=== PATIENT | female | born 1985 | race Caucasian/White ===

== ENCOUNTER 2022-11-18 05:30 | Inpatient (IN) | payer MEDICAID ==
[~2022-11-18 05:30] MED LIST: Dextrose 5%-Lactated Ringers 1,000 ML IV SCH
[2022-11-18] MEDS ORDERED: Dextrose 5%-Lactated Ringers 1,000 ML IV SCH (06:00)
[2022-11-18] MEDS ORDERED: Scopolamine 1.5 MG Transdermal Patch TOP SCH (06:00)
[2022-11-18] MEDS ORDERED: cefOXitin 2 GM in Sodium Chloride 0.9% 50 ML IV ONE (06:30)
[2022-11-18] MEDS ORDERED: Celecoxib 200 MG Cap PO ONE (06:30)
[2022-11-18 06:33] LABS: ESTIMATED GFR 54 mL/min (>60)
[2022-11-18] MEDS ORDERED: cefOXitin 2 GM Vial ONE (06:41)
[2022-11-18] MEDS ORDERED: Neostigmine Methylsulfate 1 MG/ML 5 ML Syringe ONE (06:57)
[2022-11-18] MEDS ORDERED: Succinylcholine 200 MG/10 ML MDV ONE (06:57)
[2022-11-18] MEDS ORDERED: Ondansetron 4 MG/2 ML SDV ONE (06:57)
[2022-11-18] MEDS ORDERED: Dexamethasone 4 MG/ML SDV ONE (06:57)
[2022-11-18] MEDS ORDERED: Glycopyrrolate 0.2 MG/ML 5 ML MDV ONE (06:57)
[2022-11-18] MEDS ORDERED: Rocuronium 50 MG/5 ML Vial ONE (06:57)
[2022-11-18] MEDS ORDERED: Propofol 200 MG/20 ML SDV ONE (06:57)
[2022-11-18] MEDS ORDERED: fentaNYL 250 MCG/5 ML SDV ONE ×2 (06:58→08:19)
[2022-11-18] MEDS ORDERED: Ketamine 19 MG in Sodium Chloride 0.9% 19.81 ML IV SCH (07:30)
[2022-11-18] MEDS ORDERED: Ketamine 500 MG/5 ML MDV IV SCH (07:30)
[2022-11-18] MEDS ORDERED: Ketoconazole 2% Crm 30 GM Tube ONE (08:09)
[2022-11-18 08:43] LABS: HEMOGLOBIN A1C 5.4 % (4.5-6.2)
[2022-11-18] MEDS ORDERED: Metoclopramide 10 MG/2 ML SDV IVPUSH PRN (11:00)
[2022-11-18] MEDS ORDERED: HYDROmorphone 0.5 MG/0.5 ML Syringe IVPUSH PRN (11:00)
[2022-11-18] MEDS ORDERED: Cyclobenzaprine 10 MG Tab PO PRN (11:00)
[2022-11-18] MEDS ORDERED: HYDROmorphone 1 MG/ML Syringe IV PRN (11:00)
[2022-11-18] MEDS ORDERED: Acetaminophen 500 MG Tab PO PRN (11:00)
[2022-11-18] MEDS ORDERED: hydrOXYzine HCl 50 MG/ML SDV IM PRN (11:00)
[2022-11-18] MEDS ORDERED: traMADol 50 MG Tab PO PRN (11:00)
[2022-11-18] MEDS ORDERED: diphenhydrAMINE 50 MG/ML SDV IVPUSH PRN (11:00)
[2022-11-18] MEDS ORDERED: Ondansetron 4 MG/2 ML SDV IVPUSH PRN (11:00)
[2022-11-18] MEDS ORDERED: Labetalol 20 MG/4 ML Syringe IVPUSH PRN (11:00)
[2022-11-18] MEDS: Pantoprazole 40 MG Vial IVPUSH SCH (12:01)
[2022-11-18] MEDS: SCOPOLAMINE PATCH CHECK TOP SCH (12:09)
[2022-11-18] MEDS: Dextrose 5%-Lactated Ringers 1,000 ML IV SCH (13:39)
[2022-11-18] MEDS: Levothyroxine 100 MCG Vial IVPUSH SCH (13:41)
[2022-11-18] MEDS: Acetaminophen 500 MG Tab PO SCH ×2 (13:42→22:15)
[2022-11-18] MEDS: cefOXitin 2 GM in Sodium Chloride 0.9% 50 ML IV SCH ×2 (13:43→19:28)
[2022-11-18] MEDS ORDERED: MVI, Adult with Vitamin K 10 ML, Thiamine 200 MG, Zinc/Copper/Manganese/Selenium 1 ML i... IV SCH ×4 (16:00)
[2022-11-18] MEDS: oxyCODONE 5 MG Tab PO PRN (17:22)
[2022-11-18] MEDS: Heparin Sodium 5,000 Units/ML Vial SUBCUT SCH (17:23)
[2022-11-19] MEDS ORDERED: Iopamidol 612 MG/ML 30 ML SDV PO ONE (02:47)
[2022-11-19] MEDS: cefOXitin 2 GM in Sodium Chloride 0.9% 50 ML IV SCH ×4 (02:56→20:37)
[2022-11-19] MEDS: Dextrose 5%-Lactated Ringers 1,000 ML IV SCH (02:58)
[2022-11-19] MEDS: oxyCODONE 5 MG Tab PO PRN (03:02)
[2022-11-19] MEDS: Heparin Sodium 5,000 Units/ML Vial SUBCUT SCH ×2 (05:57→20:38)
[2022-11-19] MEDS: Acetaminophen 500 MG Tab PO SCH ×3 (05:57→21:54)
[2022-11-19] MEDS: SCOPOLAMINE PATCH CHECK TOP SCH (08:09)
[2022-11-19] MEDS: Celecoxib 200 MG Cap PO SCH ×2 (08:09→20:37)
[2022-11-19] MEDS: Cetirizine 10 MG Tab PO SCH (08:09)
[2022-11-19] MEDS: Levothyroxine 100 MCG Vial IVPUSH SCH (08:17)
[2022-11-19] MEDS ORDERED: Dextrose 5%-Lactated Ringers 1,000 ML IV SCH (09:30)
[2022-11-19] MEDS: Pantoprazole 40 MG Vial IVPUSH SCH (12:33)
[2022-11-19] MEDS ORDERED: MVI, Adult with Vitamin K 10 ML, Thiamine 200 MG, Zinc/Copper/Manganese/Selenium 1 ML i... IV SCH ×4 (16:00)
[2022-11-20] MEDS: Acetaminophen 500 MG Tab PO SCH (06:00)
[2022-11-20] MEDS: Heparin Sodium 5,000 Units/ML Vial SUBCUT SCH (06:01)
[2022-11-20] MEDS ORDERED: Pantoprazole 40 MG Delayed-Release Granules 1 Packet PO SCH (07:30)
[2022-11-20] MEDS ORDERED: Magnesium Hydroxide 400 MG/5 ML Susp 30 ML Cup PO PRN (08:41)
[2022-11-20] MEDS ORDERED: Levothyroxine 100 MCG Vial IVPUSH SCH (09:00)
[2022-11-20] MEDS ORDERED: Cyanocobalamin (Vitamin B12) 1,000 MCG/ML SDV IM ONE (09:00)
[2022-11-20] MEDS: Celecoxib 200 MG Cap PO SCH (09:05)
[2022-11-20] MEDS: SCOPOLAMINE PATCH CHECK TOP SCH (09:06)
[2022-11-20] MEDS: Cetirizine 10 MG Tab PO SCH (09:06)
== END 2022-11-20 11:22 | disposition home or self-care (01) | DRG 621 ==
LOC: JP.SDS 05:30 → JP.2SS 10:15
PROVIDERS: ADMIT Surgery; ATTEND Surgery
PROC: 0D164ZA Bypass Stomach to Jejunum, Percutaneous Endoscopic Approach (ICD-10-PCS; principal; 2022-11-18)
PROC: 0FB24ZX Excision of Left Lobe Liver, Percutaneous Endoscopic Approach, Diagnostic (ICD-10-PCS; 2022-11-18)
PROC: 0BQT4ZZ Repair Diaphragm, Percutaneous Endoscopic Approach (ICD-10-PCS; 2022-11-18)
PROC: 0DB64ZZ Excision of Stomach, Percutaneous Endoscopic Approach (ICD-10-PCS; 2022-11-18)
DX: E66.01 Morbid (severe) obesity due to excess calories (principal); E03.9 Hypothyroidism, unspecified; G89.29 Other chronic pain; I10 Essential (primary) hypertension; K44.9 Diaphragmatic hernia without obstruction or gangrene; F32.9 Major depressive disorder, single episode, unspecified; D64.9 Anemia, unspecified; M54.50 Low back pain, unspecified; R16.0 Hepatomegaly, not elsewhere classified; F98.8 Other specified behavioral and emotional disorders with onset usually occurring in childhood and adolescence; Z20.822 Contact with and (suspected) exposure to COVID-19; G47.33 Obstructive sleep apnea (adult) (pediatric); Z98.51 Tubal ligation status; Z88.8 Allergy status to other drugs, medicaments and biological substances; Z87.891 Personal history of nicotine dependence; Z90.710 Acquired absence of both cervix and uterus; Z68.44 Body mass index [BMI] 60.0-69.9, adult; Z98.890 Other specified postprocedural states; Z79.890 Hormone replacement therapy
CPT/HCPCS: 36415; 74240; 74240-26; 80053; 83036; 83735; 83880; 84100; 84439; 84443; 84481; 85027; 86850; 86900; 86901; 88307; 88313; 93005; A9270-GY; C9113; J0171; J0330; J0694; J1100; J1170; J1644; J2405; J2704; J2710; J2795; J3010; J3411; J3420; J3490; J7121; Q9967